=== PATIENT | male | born 1985 | race Caucasian/White ===

== ENCOUNTER 2019-07-14 18:12 | Emergency (ER) | payer OTHER ==
[2019-07-14 18:21] VITALS: BP 143/78
[2019-07-14] MEDS ORDERED: HYDR-3165 PO (18:43)
[2019-07-14] MEDS ORDERED: NAPR-683 PO (18:43)
--- NOTE | 2019-07-14 18:45 | PHYS DOC ---
Past History Past Medical History: No Pertinent History Past Surgical History: No Surgical History Alcohol Use: Rarely Drug Use: None Adult General Chief Complaint Chief Complaint: LOWER EXT PAIN HPI HPI Patient is a 34-year-old male who presents after feeling a pop in his Achilles tendon when he was doing box jumps while doing a cross training workout. Patient states that he had been doing similar workout for quite some time and he states that he was about 100 jumps into his workout when he felt a pop and heard an audible pop in his right Achilles tendon area. Patient rates pain to be a 3-4 out of 10. He states the pain is worsened when he bears weight. He denies any other injuries.[] Review of Systems Review of Systems Constitutional: Denies fever or chills [] Respiratory: Denies cough or shortness of breath [] Cardiovascular: No additional information not addressed in HPI [] Musculoskeletal: Positive right ankle pain [] Integument: Denies rash or skin lesions [] Allergies Allergies Allergies Coded Allergies Type Severity Reaction Last Updated Verified No Known Drug Allergies 07/14/19 No Physical Exam Physical Exam Constitutional: Well developed, well nourished, no acute distress, non-toxic appearance. [] Cardiovascular:Heart rate regular rhythm, no murmur [] Lungs & Thorax: Bilateral breath sounds clear to auscultation [] Extremities: Examination of right ankle demonstrates tenderness to palpation overlying the Achilles insertion. Patient does have positive Bowie's test on the right. [] Current Patient Data Vital Signs Vital Signs Date Time Temp Pulse Resp B/P (MAP) Pulse Ox O2 Delivery O2 Flow Rate FiO2 07/14/19 18:21 78 16 99 Room Air EKG EKG [] Radiology/Procedures Radiology/Procedures [] Impressions: X-ray of right ankle demonstrates no acute bony abnormalities. Course & Med Decision Making Course & Med Decision Making Pertinent Labs and Imaging studies reviewed. (See chart for details) [] Dragon Disclaimer Dragon Disclaimer This electronic medical record was generated, in whole or in part, using a voice recognition dictation system. Departure Departure: Impression: Primary Impression: Achilles tendon rupture Disposition: HOME, SELF-CARE Condition: STABLE Referrals: FORTUNATO RAMEY (PCP) Patient Instructions: Achilles Tendon Rupture (Complete) Additional Instructions: Call Dr. Ventura's office tomorrow morning to schedule an appointment for . Scripts Naproxen (NAPROSYN) 500 Mg Tablet 1 TAB PO BID PRN for PAIN, #20 TAB 0 Refills Prov: BENJAMIN OLIVAREZ Jr. DO 07/14/19 Hydrocodone Bit/Acetaminophen (NORCO 5-325 TABLET) 1 Each Tablet 1 TAB PO PRN Q6HRS PRN for PAIN, #12 TAB 0 Refills Prov: BENJAMIN OLIVAREZ Jr. DO 07/14/19 Problem Qualifiers Primary Impression: Achilles tendon rupture Encounter type: initial encounter Laterality: right Qualified Codes: S86.011A - Strain of right Achilles tendon, initial encounter BENJAMIN OLIVAREZ Jr. DO Jul 14, 2019 18:45
--- NOTE | 2019-07-14 18:49 | RAD ---
Examination: 3 views of the right ankle HISTORY: History of right popliteal Achilles tendon COMPARISON: None available FINDINGS: The alignment of the ankle mortise grossly appears unremarkable. There is no acute fracture or dislocation identified. IMPRESSION: No acute osseous findings. Electronically signed by: Danny Griffith MD (07/14/2019 6:46 PM) [facility]
[2019-07-14] MEDS ORDERED: IBUPROFEN 800 MG TABLET. PO ONE (19:00)
== END 2019-07-14 19:05 | disposition home or self-care (01) ==
LOC: ER 18:12
DX: S86.011A Strain of right Achilles tendon, initial encounter (principal); X50.9XXA Other and unspecified overexertion or strenuous movements or postures, initial encounter; Y93.39 Activity, other involving climbing, rappelling and jumping off; Y92.89 Other specified places as the place of occurrence of the external cause; Y99.8 Other external cause status
CPT/HCPCS: 73610; 99284